=== PATIENT | male | born 2000 | race Caucasian/White ===

== ENCOUNTER 2024-05-06 10:39 | Emergency (ER) | payer OTHER ==
[~2024-05-06] VITALS: Ht 185.4 cm; Wt 117.9 kg
== END 2024-05-06 12:02 | disposition home or self-care (01) ==
LOC: ER 10:39
DX: S90.31XA Contusion of right foot, initial encounter (principal); W22.8XXA Striking against or struck by other objects, initial encounter
CPT/HCPCS: 73630; 99283-25

== ENCOUNTER 2024-09-04 17:51 | Emergency (ER) | payer OTHER ==
[~2024-09-04] VITALS: Ht 185.4 cm; Wt 108.9 kg
[2024-09-04] MEDS ORDERED: CORTISONE60 GM TOP (20:14)
[2024-09-04] MEDS ORDERED: Triamcinolone Inj Susp 40 MG / ML 1ML Vial IM ONE (20:15)
[2024-09-04] MEDS ORDERED: Hydrocortisone 1% Cream 30 gm TOP ONE (20:15)
[2024-09-04] MEDS ORDERED: Betamethasone Sod Phos/Acetate 6 MG/ML 5ML VIAL IM ONE (20:15)
== END 2024-09-04 20:34 | disposition home or self-care (01) ==
LOC: ER 17:51
DX: L23.7 Allergic contact dermatitis due to plants, except food (principal)
CPT/HCPCS: 96372; 99282-25; A9270; J0702; J3301